=== PATIENT | male | born 1950 | race Caucasian/White ===

== ENCOUNTER → 2019-10-07 | Outpatient (CLI) | payer MEDICARE, BC | LOC: LB.CLINIC 11:09 | PROVIDERS: ATTEND Family Medicine | DX: Z01.812 Encounter for preprocedural laboratory examination (principal); Z01.818 Encounter for other preprocedural examination | CPT/HCPCS: 36415; 80048; 81003; 85025 ==

== ENCOUNTER 2022-04-21 11:27 | Inpatient (IN) | payer MEDICARE, BC ==
[2022-04-21] MEDS ORDERED: Sodium Chloride 0.9% 10 ML Syringe FLUSH PRN (11:31)
[2022-04-21] MEDS ORDERED: Sodium Chloride 0.9% 1,000 ML IV SCH (11:45)
[2022-04-21 12:13] LABS: ESTIMATED GFR 76 mL/min (>60)
[2022-04-21 12:16] LABS: TROPONIN I HIGH SENSITIVITY 373.7 pg/ml (<=60.4)
[2022-04-21] MEDS ORDERED: Aspirin 325 MG Tab.EC PO SCH (13:30)
[2022-04-21] MEDS ORDERED: Enoxaparin 100 MG/1 ML Syringe SUBCUT SCH (13:30)
[2022-04-21] MEDS ORDERED: Heparin Sodium/D5W 25,000 UNITS/500 ML BAG IV SCH (14:00)
[2022-04-21] MEDS ORDERED: Lisinopril 5 MG Tab PO ONE (14:36)
[2022-04-21] MEDS ORDERED: Acetaminophen 325 MG Tab PO PRN (15:06)
[2022-04-21] MEDS ORDERED: Polyethylene Glycol 3350 Powder 17 GM Packet PO PRN (15:09)
[2022-04-21] MEDS ORDERED: LORazepam 2 MG/ML SDV IVPUSH ONE (15:43)
[2022-04-21] MEDS: Sodium Chloride 0.9% 1,000 ML IV SCH ×2 (17:30→21:43)
[2022-04-21] MEDS ORDERED: Non-Formulary Medication 1 Each (Carbidopa/Levodopa [Carbidopa-Levo 25-100 Mg Odt] 1 EACH PO SCH (19:00)
[2022-04-21] MEDS ORDERED: atorvaSTATin 20 MG Tab PO SCH (20:00)
[2022-04-22] MEDS: Sodium Chloride 0.9% 1,000 ML IV SCH (00:09)
== END 2022-04-22 06:23 | DRG 282 ==
LOC: LB.ED 11:27 → LB.MS 15:06
PROVIDERS: ADMIT Physician Assistant; ATTEND Physician Assistant
DX: I21.4 Non-ST elevation (NSTEMI) myocardial infarction (principal); I10 Essential (primary) hypertension; R55 Syncope and collapse; Z20.822 Contact with and (suspected) exposure to COVID-19; K59.00 Constipation, unspecified; G20 Parkinson's disease; Z98.1 Arthrodesis status; Z79.899 Other long term (current) drug therapy; R00.1 Bradycardia, unspecified
CPT/HCPCS: 36415; 70450; 80048; 81003; 84484; 85025; 85610; 93005; 93010; 96360; 96361; 99223; 99238; 99285-25; A0425; A0429; A9270-GY; J1644; J2060; J7030; U0002